=== PATIENT | male | born 1995 | race Caucasian/White ===

== ENCOUNTER 2019-12-21 13:23 | Emergency (ER) | payer BC, SELFPAY ==
--- NOTE | ~2019-12-21 | XR_ITS ---
EXAMINATION: XR chest 2V DATE: 12/21/2019 14:06 INDICATION: Painful respirations. Recent illness with fever. TECHNIQUE: PA and lateral views of the chest were obtained. COMPARISON: None FINDINGS: The lungs are clear with no focal airspace opacities, pulmonary edema, pleural effusion or pneumothor ax. The cardiomediastinal silhouette is normal. Visualized bones and soft tissues are unremarkable. IMPRESSION: 1. Normal chest radiograph. Reviewed, dictated and finalized at location A. IMPRESSION: 1. Normal chest radiograph.
--- NOTE | 2019-12-21 13:30 | ECG_ITS ---
Measurements Intervals [place] Rate: 69 P: 58 MA: 141 QRS: 81 QRSD: 93 T: 22 QT: 383 QTc: 411 Interpretive Statements SINUS RHYTHM NORMAL ECG Electronically Signed On 12-22-2019 10:38:10 CDT by Doc Haro D.O.
[2019-12-21 13:34] VITALS: BP 136/83; PULSE 80; RESP 18; TEMP 36.3; O2SAT 99
[2019-12-21] MEDS: ASPIRIN 81 MG CHEWABLE TABLET 324 MG PO (13:56)
[2019-12-21 14:12] LABS: Basophils Absolute Auto 0.1 K/mm3 (0.0-0.1); Eosinophils Absolute Auto 0.1 K/mm3 (0-0.3); Eosinophils Percent Auto 2.8 % (0-4.4); Hematocrit 40.7 % (42.0-52.0); Hemoglobin 14.3 g/dL (14.0-18.0); Immature Granulocyte Absolute 0.01 K/mm3 (0.00-0.031); Immature Granulocyte Percent A 0.2 % (0-0.5); Lymphocytes Absolute Auto 2.21 K/mm3 (0.9-3.2); Lymphocytes Percent Auto 44.3 % (18.3-44.2); Mean Corpuscular HGB Conc 35.1 g/dl (32-36); Mean Corpuscular Hemoglobin 29.9 pg (26-34); Mean Platelet Volume 10.3 fl (7.4-10.4); Monocytes Absolute Auto 0.5 K/mm3 (0.1-0.6); Monocytes Percent Auto 9.2 % (2.6-8.5); Neutrophils Absolute Auto 2.1 K/mm3 (1.3-6.7); Neutrophils Percent Auto 42.5 % (45.5-73.1); Platelet Count Result 155 k/mm3 (150-375); Red Blood Count 4.79 M/mm3 (4.6-6.20); Red Cell Distribution Width 11.9 % (11.5-14.5)
[2019-12-21 14:24] LABS: Prothrombin Time 12.4 Seconds (11.1-14.7)
[2019-12-21 14:25] LABS: Anion Gap 8 mmol/L (8-16); Blood Urea Nitrogen 18 mg/dL (9-20); Calcium 9.1 mg/dL (8.4-10.2); Carbon Dioxide 27 mmol/L (22-30); Chloride 104 mmol/L (98-107); Estimated CRCL calculation 93 ml/min; Estimated Glomerular Filt Rate > 60; Glucose 102 mg/dL (75-110); Partial Thromboplastin Time 27.4 SECONDS (22.3-36.8); Potassium 3.9 mmol/L (3.4-5.0); Sodium 139 mmol/L (137-145)
[2019-12-21 14:27] LABS: D Dimer 0.53 ug/mL (<0.48)
[2019-12-21 14:35] LABS: Troponin I 0.012 ng/mL (0.000-0.034)
[2019-12-21 15:48] VITALS: BP 121/76; PULSE 73; RESP 14; O2SAT 100
--- NOTE | 2019-12-21 16:08 | ED.CHESTPAIN ---
HPI - Chest Pain General Chief Complaint: Chest Pain Stated Complaint: chest pain Time Seen by Provider: 12/21/19 13:33 Source: patient Mode of arrival: ambulatory Limitations: no limitations History of Present Illness HPI narrative: 24-year-old with no major medical problems here with complaints of upper abdominal and chest pain for last few days. Patient states that every time he takes a deep breath gets some sharp pain in the mid chest area. She denies any shortness of breath. Occasional cough. He also mentions that he had to cope with screen done few days ago and had an negative result. No history of fever or chills. complaint: chest pain Onset (ago): week(s) (1) Timing of current episode: constant Pain radiation: none Severity: moderate Quality: aching Relieving factors: nothing Risk Factors Coronary artery disease risk factors: none Related Data Home Medications Medication Instructions Recorded Confirmed albuterol sulfate 2 puff INHALATION QID PRN 12/21/19 Allergies Allergy/AdvReac Type Severity Reaction Status Date / Time No Known Allergies Allergy Verified 12/21/19 13:32 Review of Systems Review of Systems: All systems reviewed & are unremarkable except as noted in HPI and below Constitutional: Constitutional: Reports no additional constitutional complaints Eyes: Eyes: Reports no additional eye complaints Cardiovascular: Cardiovascular: Reports no additional cardiovascular complaints Respiratory: Respiratory: Reports no additional respiratory complaints Gastrointestinal: Gastrointestinal: Reports no additional gastrointestinal complaints PMFSH Past Medical History Medical History Asthma Social History Social History Smoking status: Never smoker Gender identity (if verbalized by the patient): Male Exam Narrative: Exam Narrative: GENERAL: Well-appearing, well-nourished, and in no acute distress. HEAD: Normocephalic, atraumatic. EYES: PERRLA and EOMI. ENT: Nares clear, no rhinorrhea or epistaxis. Mucous membranes moist. NECK: Supple. CHEST: Clear to auscultation. No respiratory distress. HEART: Regular rate and rhythm. No murmur heard. Normal peripheral pulses. ABDOMEN: Soft, nontender, nondistended, normal active bowel sounds. EXTREMITIES: Normal range of motion. No edema. SKIN: Warm, dry, no rash. NEURO: No focal deficits. Alert and oriented x3. PSYCH: Normal mood and affect. Course Vital Signs Vital signs: Vital Signs Temperature 36.3 C L 12/21/19 13:34 Pulse Rate 80 12/21/19 13:34 Respiratory Rate 18 12/21/19 13:34 Blood Pressure 136/83 12/21/19 13:34 Pulse Oximetry 99 12/21/19 13:34 Temperature 36.3 C L 12/21/19 13:34 Pulse Rate 73 12/21/19 15:48 Respiratory Rate 14 12/21/19 15:48 Blood Pressure 121/76 12/21/19 15:48 Pulse Oximetry 100 12/21/19 15:48 MDM - Chest Pain MDM Narrative Medical decision making narrative: With a history of upper respiratory symptoms and cough and chest pain will do cardiac work-up. There is CBC and chemistry chest x-ray all were normal limits I did inform him about his lab work.. Advised him to take Aleve as needed. Lab Data Result diagrams: 12/21/19 13:35 12/21/19 13:35 Labs: Lab Results 12/21/19 12/21/19 12/21/19 Range/Units 13:35 13:35 13:35 WBC 5.0 (4.5-10.0) K/mm3 RBC 4.79 (4.6-6.20) M/mm3 Hgb 14.3 (14.0-18.0) g/dL Hct 40.7 L (42.0-52.0) % MCV 85.0 (80-100) fl MCH 29.9 (26-34) pg MCHC 35.1 (32-36) g/dl RDW 11.9 (11.5-14.5) % Plt Count 155 (150-375) k/mm3 MPV 10.3 (7.4-10.4) fl Immature Gran % (Auto) 0.2 (0-0.5) % Neut % (Auto) 42.5 L (45.5-73.1) % Lymph % (Auto) 44.3 H (18.3-44.2) % Dodge % (Auto) 9.2 H (2.6-8.5) % Eos % (Auto) 2.8 (0-4.4) % Baso % (Auto) 1.0 (0.2-1.2)
[2019-12-21 17:09] VITALS: BP 121/76; PULSE 76; RESP 20; O2SAT 99
== END 2019-12-21 17:09 | disposition home or self-care (01) ==
PROVIDERS: Emergency Provider Family Medicine
DX: R07.89 Other chest pain (principal); J45.909 Unspecified asthma, uncomplicated
CPT/HCPCS: 36415; 71046; 80048; 84484; 85025; 85380; 85610; 85730; 93005; 99284; A9270

== ENCOUNTER 2020-03-16 10:12 | Emergency (ER) | payer BC, SELFPAY ==
[2020-03-16 10:20] VITALS: BP 150/90; PULSE 83; RESP 18; TEMP 36.5; O2SAT 99
--- NOTE | 2020-03-16 12:11 | ED.WOUNDLAC ---
HPI - Wound/Laceration General Chief Complaint: Wound/Laceration Stated Complaint: lip lac Time Seen by Provider: 03/16/20 10:29 Source: patient Mode of arrival: ambulatory Limitations: no limitations History of Present Illness HPI narrative: Patient presents with chief complaint of laceration to the right lower lip that he should stay after accidentally hitting himself while pulling back a shovel. Patient states that he has mild bleeding to the lip. Patient denies additional falls or injuries. Patient reports some bruising to his upper gum area. He states that he is up-to-date on his tetanus. Related Data Home Medications Medication Instructions Recorded Confirmed albuterol sulfate 2 puff INHALATION QID PRN 12/21/19 Allergies Allergy/AdvReac Type Severity Reaction Status Date / Time No Known Allergies Allergy Verified 03/16/20 10:24 Review of Systems Review of Systems: Narrative: CONSTITUTIONAL: Denies fever, chills, or sweats. EYES: Denies visual changes, redness, or discharge. ENT: Denies rhinorrhea, congestion, sore throat, or otalgia. CARDIOVASCULAR: Denies chest pain, palpitations, or edema. RESPIRATORY: Denies cough or dyspnea. GASTROINTESTINAL: Denies abdominal pain, nausea, vomiting, or diarrhea. GENITOURINARY: Denies dysuria or hematuria. SKIN: Reports lip laceration denies rash or itching. MUSCULOSKELETAL: Denies back pain, joint pain, or myalgia. NEUROLOGIC: Denies headache, numbness, dizziness, or weakness. PSYCHIATRIC: Denies anxiety or depression. PMFSH Past Medical History Medical History (Updated 03/16/20 @ 12:18 by Danny Leavitt PA-C) Asthma Social History Social History Smoking status: Never smoker Gender identity (if verbalized by the patient): Male Exam Narrative: Exam Narrative: GENERAL: Well-appearing, well-nourished, and in no acute distress. HEAD: Normocephalic, atraumatic. See skin. EYES: PERRLA and EOMI. NECK: Supple. No adenopathy or masses. CHEST: Clear to auscultation. No respiratory distress. No wheezes rales or rhonchi HEART: Regular rate and rhythm. No murmur heard. Normal peripheral pulses. EXTREMITIES: Normal range of motion. No edema. SKIN: Approximately 1.5 cm vertical laceration warm to the right aspect of the lower lip. Abrasion to the internal aspect of the right lower lip. Ecchymosis to the right upper gums. dry, no rash. NEURO: No focal deficits. Alert and oriented x3. PSYCH: Normal mood and affect. Course Vital Signs Vital signs: Vital Signs Temperature 97.7 F 03/16/20 10:20 Pulse Rate 83 03/16/20 10:20 Respiratory Rate 18 03/16/20 10:20 Blood Pressure 150/90 H 03/16/20 10:20 Pulse Oximetry 99 03/16/20 10:20 Temperature 97.7 F 03/16/20 10:20 Pulse Rate 84 03/16/20 12:32 Respiratory Rate 15 03/16/20 12:32 Blood Pressure 123/80 03/16/20 12:32 Pulse Oximetry 97 03/16/20 12:32 Procedures Laceration Laceration 1: Site: lip Side (If applicable): right Size (cm): 1.5 Description: linear Depth: simple, single layer Local Anesthetic: lidocaine 1% Amount of anesthesia used (mL): 0.25 Pre-repair: irrigated extensively ====== Skin Level ====== Skin layer closed with: vicryl Size (cm): 5-0 Number of sutures: 3 ====== Subcutaneous Layer ====== ====== Muscle Layer ====== ====== Tendon Layer ====== Dressing: Wound came together well. Wound care instructions discussed with patient. MDM - Wound/Laceration MDM Narrative Medical decision making narrative: Discussed with patient the importance of keeping wounds clean and following up with his primary care if he has any signs of infection. Patient states he is sure he is up-to-date on his tetanus and does not require one emergency department today. Patient has been informed that his sutures will disintegrate over
[2020-03-16 12:17] VITALS: BP 143/80; PULSE 87; RESP 15; O2SAT 100
[2020-03-16 12:32] VITALS: BP 123/80; PULSE 84; RESP 15; O2SAT 97
== END 2020-03-16 12:34 | disposition home or self-care (01) ==
PROVIDERS: Emergency Provider Family Medicine
DX: S01.511A Laceration without foreign body of lip, initial encounter (principal); J45.909 Unspecified asthma, uncomplicated; W27.1XXA Contact with garden tool, initial encounter
CPT/HCPCS: 12011; 99282

== ENCOUNTER 2022-05-01 15:48 | Emergency (ER) | payer OTHER, SELFPAY ==
[2022-05-01 16:02] VITALS: BP 136/77; PULSE 81; RESP 16; TEMP 36.9; O2SAT 99
--- NOTE | 2022-05-01 16:32 | ED.URI ---
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 He reports that he has children at home this tested positive for RSV and strep. MD elicited complaint: sore throat and nasal congestion Related Data Allergies Allergy/AdvReac Type Severity Reaction Status Date / Time No Known Allergies Allergy Verified 05/01/22 16:03 Review of Systems Review of Systems: Pertinent positives per HPI. Patient denies any fever, chills, rash, headache, visual changes, dizziness, shortness of breath, chest pain, palpitations, nausea, vomiting, diarrhea, constipation, abdominal pain, or any urinary issues. PMFSH Past Medical History Medical History Asthma Social History Social History Smoking status: Never smoker Gender identity (if verbalized by the patient): Male Comments At the time of my signature, I reviewed and agree with the nursing past medical, surgical, social, and family history. There is no relevant family history pertinent to the patient complaint. Exam Narrative: General: Well-developed, well nourished, in no apparent distress Head: Normocephalic, atraumatic Eyes: Pupils equally round and reactive to light bilaterally, EOM intact, sclera and conjunctive clear, no discharge, lids normal Ears: TMs intact and clear, ear canals clear, no drainage, grossly hearing normal. Nose: Nares patent, clear nasal discharge, no inflammation, no sinus tenderness. Mouth: Oral pharynx without lesions or masses, good dentition, MMM. oropharynx red Neck: Supple, trachea midline, enlargement of anterior cervical nodes, no thyroid masses or goiter palpable. Cardio: Regular rate and rhythm, s1 and s2 normal, no murmur appreciated. Resp: Clear to auscultation bilaterally, no rhonchi, rales, wheezing or rubs Course Course Emergency Course: Portions of this record may have been created with voice recognition software. Level of Care: Express Care Visit Vital Signs Vital signs: Vital Signs Temperature 36.9 C 05/01/22 16:02 Pulse Rate 81 05/01/22 16:02 Respiratory Rate 16 05/01/22 16:02 Blood Pressure 136/77 05/01/22 16:02 Pulse Oximetry 99 05/01/22 16:02 Oxygen Delivery Room Air 05/01/22 16:02 Temperature 36.9 C 05/01/22 16:02 Pulse Rate 81 05/01/22 16:02 Respiratory Rate 16 05/01/22 16:02 Blood Pressure 136/77 05/01/22 16:02 Pulse Oximetry 99 05/01/22 16:02 Oxygen Delivery Room Air 05/01/22 16:02 Vital signs reviewed MDM - URI/Sore Throat MDM Narrative Medical decision making narrative: At the time of visit patient is resting comfortably on exam table. Strep screen was positive in the clinic today. COVID a and influenza testing were negative. Will send in prescription for amoxicillin supportive measures were discussed with the patient he voiced understanding of discharge instructions. Differential Diagnosis Differential diagnosis: Likely upper respiratory infection, otitis media, sinusitis, viral infection, bronchitis, influenza, pharyngitis and other ( COVID) Lab Data Labs: Influenza A Screen Negative Reference Range: Negative Influenza B Screen Negative Reference Range: Negative Strep Screen Positive Group A Strep *(Reference Range: Negative)* Discharge Plan Discharge Clinical Impression: Strep pharyngitis, Acute upper respi
== END 2022-05-01 16:40 | disposition home or self-care (01) ==
PROVIDERS: Emergency Provider Nurse Practitioner Family
DX: J02.0 Streptococcal pharyngitis (principal); Z20.822 Contact with and (suspected) exposure to COVID-19; J45.909 Unspecified asthma, uncomplicated
CPT/HCPCS: 87426; 87804; 87880; 99213; C9803; G0463

== ENCOUNTER 2023-04-20 16:14 | Emergency (ER) | payer OTHER, SELFPAY ==
--- NOTE | ~2023-04-20 | XR_ITS ---
EXAMINATION: XR knee LT min 4V DATE: 04/20/2023 18:30 INDICATION: Left knee pain TECHNIQUE: Anteroposterior, 2 oblique and crosstable lateral views of the left knee were obtained COMPARISON: None. FINDINGS: Alignment is normal. No fracture. No joint effusion/layering lipohemarthrosis. Sclerotic bone island at the lateral femoral condyle. Soft tissues are unremarkable. IMPRESSION: 1. Negative left knee radiographs. Reviewed, dictated and finalized at location A. VITIES MANAGER
[2023-04-20 16:39] VITALS: BP 139/80; PULSE 83; RESP 18; TEMP 36.9; O2SAT 100
--- NOTE | 2023-04-20 18:11 | ED.LOWEXIN ---
HPI - Extremity Injury (Lower) General Chief Complaint: Extremity Injury, Lower Stated Complaint: KNEE PAIN Time Seen by Provider: 04/20/23 18:11 History of Present Illness HPI Narrative: Patient is a 28-year-old male with no past medical history here today with left knee pain. Patient notes that he has had intermittent knee pain in this same knee for the last year to year and a half. He states he usually feels like a pulling sensation of the string and then resolves after rest, ice, elevation for couple of days. He states that earlier today he was stepping out of a door and twisted his knee and felt this pulling sensation. The pain was so severe that it made him fall to the floor. He denies any other injuries. He states that he has had some difficulty bearing weight on this knee since that time. No prior orthopedic injuries in the past. He denies fever or chills. No numbness or tingling in the leg. Related Data Allergies Allergy/AdvReac Type Severity Reaction Status Date / Time No Known Allergies Allergy Verified 04/20/23 18:11 Review of Systems Review of Systems: All systems reviewed & are unremarkable except as noted in HPI and below PMFSH Past Medical History Medical History (Updated 04/20/23 @ 19:10 by Sona Diego MD) Asthma Social History Social History Smoking status: Never smoker Gender identity (if verbalized by the patient): Male Exam Narrative: GENERAL: Well-appearing, well-nourished, and in no acute distress. HEAD: Normocephalic, atraumatic. EYES: PERRLA and EOMI. ENT: Nares clear. Mucous membranes moist. NECK: Supple. CHEST: Clear to auscultation. No respiratory distress. HEART: Regular rate and rhythm. Normal peripheral pulses. ABDOMEN: Soft, nontender, nondistended. EXTREMITIES: Decreased ROM to the left knee due to pain, no obvious joint effusion, tenderness to the medial aspect of the left knee. Normal PMS distal to the injury. SKIN: Warm, dry, no rash. NEURO: No focal deficits. Alert and oriented x3. PSYCH: Normal mood and affect. Course Course Emergency Course: Chart review performed. Patient here with knee pain. Triage vitals normal. Patient seen and evaluated. No fracture on xray. Discussed results of xray. Suspect arthritis versus soft tissue injury of knee. Will place in knee immobilizer and provide crutches. Patient is advised rest, ice, elevation, Tylenol and ibuprofen for pain. The results of pertinent diagnostic studies and exam findings were discussed. The patient?s provisional diagnosis and plan of care were discussed with the patient and present family. The patient and/or present family expressed understanding of the diagnosis and plan. The nurse was instructed to provide written instructions and appropriate follow-up information. The patient understands their need and responsibility to obtain additional follow-up as instructed. The risks of medications administered and prescribed were discussed with the patient and family present. Vital Signs Vital signs: Vital Signs Temperature 98.4 F 04/20/23 16:39 Pulse Rate 83 04/20/23 16:39 Respiratory Rate 18 04/20/23 16:39 Blood Pressure 139/80 04/20/23 16:39 Pulse Oximetry 100 04/20/23 16:39 Oxygen Delivery Room Air 04/20/23 16:39 Temperature 98.4 F 04/20/23 16:39 Pulse Rate 83 04/20/23 16:39 Respiratory Rate 18 04/20/23 16:39 Blood Pressure 139/80 04/20/23 16:39 Pulse Oximetry 100 04/20/23 16:39 Oxygen Delivery Room Air 04/20/23 16:39 Discharge Plan Discharge Clinical Impression: Knee sprain Qualifiers: Encounter type: initial encounter Involved ligament of knee: unspecified ligament Laterality: left Qualified Code(s): S83.92XA - Sprain of unspecified site of left knee, initial encounter Patient Disposition: Home, Self-Care Condition: Stable Instructions: Antibiotic Form, Knee Pain (ED) Additional Ins
== END 2023-04-20 20:06 | disposition home or self-care (01) ==
PROVIDERS: Emergency Provider Student in an Organized Health Care Education/Training Program
DX: S83.92XA Sprain of unspecified site of left knee, initial encounter (principal); J45.909 Unspecified asthma, uncomplicated; X58.XXXA Exposure to other specified factors, initial encounter
CPT/HCPCS: 73564; 99283

== ENCOUNTER 2023-06-13 13:15 | Outpatient (RCR) | payer OTHER, SELFPAY ==
--- NOTE | 2023-04-30 15:20 | OPREHPOC ---
Outpatient Therapy Plan of Care This is a Multidisciplinary Plan of Care that may contain components documented by all disciplines (PT, OT, and ST.) PT Problem 1 PT Problem #1 Knowledge Deficit PT Goal 1 Goal 1. Patient will perform independent HEP Target Visit 9 PT Problem 2 PT Problem #2 Impaired Functional ADLs PT Goal 1 Goal 1. Patient able to do normal activities without crutches for at least 2 weeks 2. Patient able to do all work activities without limitation Target Visit 9 PT Problem 3 PT Problem #3 Pain PT Goal 1 Goal 1. Patient able to ambulate in therapy gym with pain no higher than 2/10 Target Visit 9 PT Problem 4 PT Problem #4 Impaired Range of Motion PT Goal 1 Goal 1. Improve left knee extension to 0 to normalize gait patterns 2. Improve left knee flexion to 135 for stairs when on the job Target Visit 9 PT Problem 5 PT Problem #5 Impaired Strength PT Goal 1 Goal 1. Flexion and extension 5/5 MMT on left without pain in order to return to all work activities
--- NOTE | 2023-04-30 15:20 | PTOPEVAL1 ---
Assessment and note entered by Jessica Meyers DPT Evaluation Information Assessment Status Evaluation Subjective Information Pt reports he has been diagnosed with a hamstring strain. Has been on and off for about a year but recently felt a snap after getting out of his work truck and walking across a parking lot, then went to turn and felt a lot of pain which caused him to fall down. Occurred on 04/20/24. 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 Difficulty fully straightening his leg now and is currently using crutches. Pain with walking, not doing his normal cooking or cleaning. Can dress and shower independently with difficulty. Dr. Chen told him to use crutches until seeing PT or probably until the end of this week. Highest pain 10/10 and lowest 2-3/10. Return to MD is not scheduled currently. States no plans for surgery at the moment. No stairs at home but often has them in the houses he goes in to. Patient goal: be able to walk again Reported Pain Level Pain Score 3: Self Report Assessment PT Clinical Summary The patient is presenting to skilled therapy with a diagnosis of L hamstring strain. He presents with significantly decreased knee ROM (+35 to 125 actively) and gait impairments which are contributing to his pain with normal activities including work and current crutch use. He will highly benefit from therapy to address his impairments to wean from crutches, decrease pain, and restore full function. LEFS = 27.5% function. Plan of Care Interventions Electrical Stimulation,Gait Training,Hot Pack/Cold Pack,Manual Therapy,Neuro Re-education,Patient/ Caregiver Education,Therapeutic Activities, Therapeutic Exercise PT Services Indicated Yes Treatment Frequency and 2 times a week for 8 visits Duration These treatments will address the objective and functional deficits as defined above. The patient will be advanced safely and appropriately in order for the patient to progress towards his/her prior level of function. Additional exercises will be introduced and as well as a comprehensive home exercise program upon discharge, if needed, ?to ensure carryover of functional gains achieved in the clinic. This treatment plan has been reviewed and agreement upon by the patient.
--- NOTE | 2023-05-11 11:46 | PCPTNOTE ---
Pt. was not seen for physical therapy treatment this date. Pt. spoke with front end developer designer and reported he had the wrong time down.
--- NOTE | 2023-05-29 13:11 | OPREHPOC ---
Outpatient Therapy Plan of Care This is a Multidisciplinary Plan of Care that may contain components documented by all disciplines (PT, OT, and ST.) PT Problem 1 PT Problem #1 Knowledge Deficit PT Goal 1 Goal 1. Patient will perform independent HEP Target Visit 9 Progress Met PT Problem 2 PT Problem #2 Impaired Functional ADLs PT Goal 1 Goal 1. Patient able to do normal activities without crutches for at least 2 weeks 2. Patient able to do all work activities without limitation Target Visit 17 Progress Partially Met Comment No crutches for 2 weeks, not doing all normal/work activities PT Problem 3 PT Problem #3 Pain PT Goal 1 Goal 1. Patient able to ambulate in therapy gym with pain no higher than 2/10 Target Visit 9 Progress Met PT Problem 4 PT Problem #4 Impaired Range of Motion PT Goal 1 Goal 1. Improve left knee extension to 0 to normalize gait pattern 2. Improve left knee flexion to 135 for stairs when on the job Target Visit 17 Progress Partially Met Comment 1. 2 from 0 2. met PT Problem 5 PT Problem #5 Impaired Strength PT Goal 1 Goal 1. Flexion and extension 5/5 MMT on left without pain in order to return to all work activities Target Visit 17 Progress Partially Met Comment 4/5 knee flexion
--- NOTE | 2023-05-29 13:11 | PTOPPROG ---
Assessment and note entered by Jessica Meyers DPT Evaluation Information Assessment Status Progress Subjective Information Pt reports he is overall feeling a lot better with therapy. Highest pain in last week 7-8/10 and lowest 0/10. Notices that side still feels tight and less flexible. Has not used crutches for 2 weeks. Has started to do more activity at work and home but not back to his typical activity level yet. Returns to MD soon but is unsure of date. Assessment PT Clinical Summary The patient has made excellent progress in therapy . He reports overall decreased pain and no crutch use for 2 weeks. He demonstrates improved knee extension range of motion to 2 degrees from neutral. He continues to display LE weakness and gait/stair impairments and will benefit from further therapy to restore motion, strength, and gait to return to full function. LEFS improved to 51.25% of function. Plan of Care Interventions Electrical Stimulation,Gait Training,Hot Pack/Cold Pack,Manual Therapy,Neuro Re-education,Patient/ Caregiver Education,Therapeutic Activities, Therapeutic Exercise PT Services Indicated Yes Treatment Frequency and 2 times a week for 8 visits Duration These treatments will address the objective and functional deficits as defined above. The patient will be advanced safely and appropriately in order for the patient to progress towards his/her prior level of function. Additional exercises will be introduced and as well as a comprehensive home exercise program upon discharge, if needed, ?to ensure carryover of functional gains achieved in the clinic. This treatment plan has been reviewed and agreement upon by the patient.
--- NOTE | 2023-06-06 13:56 | PCPTNOTE ---
Patient called to cancel appointment 06/06/23 due to a work conflict.
--- NOTE | 2023-06-08 13:27 | PCPTNOTE ---
Pt. was a no show for his PT appointment today. Called pt. and left voicemail re: missed appointment
--- NOTE | 2023-06-15 11:37 | PCPTNOTE ---
Pt cancelled do to work conflict.
--- NOTE | 2023-06-19 12:45 | PCPTNOTE ---
Pt cancelled today due to work.
--- NOTE | 2023-06-22 10:37 | PCPTNOTE ---
Patient cancelled appointment for 06/22/23, states he hurt himself again and MD wants him to hold off on therapy until at least after an MRI next week.
--- NOTE | 2023-07-12 09:48 | PTOPDC ---
Assessment and note entered by Jessica Meyers DPJanell Evaluation Information Assessment Status Discharge - Pt Not Present Subjective Information - Assessment PT Clinical Summary Patient has not returned after appointment for imaging several weeks ago. He will be discharged this date and need a new script to resume therapy as needed. Plan of Care PT Services Indicated No
== END 2023-07-12 10:18 | disposition home or self-care (01) ==
LOC: ANHPT 13:15
PROVIDERS: Visit Provider Orthopaedic Surgery
DX: S76.312D Strain of muscle, fascia and tendon of the posterior muscle group at thigh level, left thigh, subsequent encounter (principal)
CPT/HCPCS: 97014; 97035; 97110; 97116; 97140; 97161; 97530; 99199; G0283

== ENCOUNTER 2025-02-23 02:51 | Emergency (ER) | payer OTHER, SELFPAY ==
--- NOTE | ~2025-02-23 | US_ITS ---
EXAMINATION: US scrotum doppler DATE: 02/23/2025 04:35 INDICATION: Testicular pain TECHNIQUE: Testicular sonogram utilizing grayscale and Doppler COMPARISON: None. FINDINGS: The right testis measures 4.6 x 2.9 x 2.1 cm. The left testis measures 4.5 x 2.8 x 1.9 cm. Symmetric normal grayscale appearance to both testes. There is normal vascular flow to both testes. The right epididymis is normal with normal vascular flow. The left epididymis is normal with normal vascular flow. There is no varicocele or hydrocele. IMPRESSION: 1. Normal scrotal ultrasound. Reviewed, dictated and finalized at location A. VERY CONSULTANT
--- OUTSIDE RECORDS SUMMARY | 2025-02-23 02:53 | XMS_ITS | Clinical Summary ---
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 Gender Identity Not on file Sexual Orientation Not on file Last Filed Vital Signs Vital Sign Reading Time Taken Comments Blood Pressure 108/66 04/05/2021 4:59 PM FBI PROFILER Pulse 77 04/05/2021 4:59 PM FBI PROFILER Temperature 36.8 C (98.2 F) 04/05/2021 4:59 PM FBI PROFILER Respiratory Rate 14 04/05/2021 4:59 PM FBI PROFILER Oxygen Saturation 97% 04/05/2021 4:59 PM FBI PROFILER Inhaled Oxygen Concentration - - Weight - - Height - - Body Mass Index - - Plan of Treatment Not on file Insurance [facility] H[facility]/PPO Address: [facility] [id number] [place] [id number] [facility] [address] [id number] Care Teams Diplomatic Interpreter/Translator Relationship Specialty Start Date End Date No, Physician PCP - General 04/05/21
--- OUTSIDE RECORDS SUMMARY | 2025-02-23 02:53 | XMS_ITS | Clinical Summary ---
Author Organization [facility] Address [address] [place] [address] Care Team Providers Care Spindle Repairer Name Role Phone Chante Lee MD Primary Care Provider + Allergies No known active allergies Medications No known medications Active Problems Problem Noted Date Diagnosed Date Flat foot 05/09/2013 Encounters Date Type Department Care Team Description 12/05/2024 Results Follow-Up [facility] Family Medicine - [place] [address] [address] HEAD WO CON 12/03/2024 9:17 AM CDT - 12/03/2024 11:59 PM CDT Hospital Encounter [facility] [address] [place] [address] Chante Lee MD Discharge Disposition: Home or Self Care (Routine Discharge) 12/03/2024 Travel from Last 3 Months Immunizations Immunization Administration Dates Next Due Dtap 09/02/2002,10/30/1998 Dtap (Generic) 1997,1997,1997 Dtp 1997,1997 Dtp/Hib 1997 Hepatitis A (Generic) 03/06/2003,09/02/2002,05/2000 Hepatitis B (Generic: Adult) 02/26/1998,05/25/18 98,1997 Hepatitis B Pediatric 02/26/1998,1997,10/1996 Hib 06/24/1998,1997 Hib Vaccine, Prp-Omp 06/24/1998,1997,07/27,1997 MMR 09/02/2002,06/24/1998 Menactra 02/03/2015 Opv 10/30/1998,1997,1997 Pneumococcal (Prevnar 7) 10/22/2000 Polio IPV (Ipol) 09/02/2002,10/30/1998 Tdap (Adacel) 10/31/2024 Tdap (Generic) 11/08/2011 Varicella Vaccine 11/26/2008,06/24/1998 Family History Medical History Relation Comments No Known Problems Daughter Hypertension Father No Known Problems Mother Lung Cancer Paternal Grandmother smoker No Known Problems Sister No Known Problems Son Relation Status Comments Daughter Alive Father Alive Mother Alive Paternal Grandmother Sister Alive Son Alive Social History Tobacco Use Types Packs/Day Years Used Date Smoking Tobacco: Never Passive Smoke Exposure: Past Smokeless Tobacco: Former Chew Quit: 2022 Tobacco Cessation:Counseling Given: No Alcohol Use Standard Drinks/Week Comments Yes 0 (1 standard drink = 0.6 oz pur e alcohol) Only on occasion PHQ-2 Answer Date Recorded Patient Health Questionnaire-2 Score 0 10/31/2024 Sex and Gender Information Value Date Recorded Sex Assigned at Not on file Legal Sex Male 6:51 PM CDT Gender Identity Not on file Sexual Orientation Not on file Last Filed Vital Signs Vital Sign Reading Time Taken Comments Blood Pressure 137/83 10/31/2024 11:34 AM CDT Pulse 83 10/31/2024 11:34 AM CDT Temperature 36.6 C (97.8 F) 10/31/2024 11:34 AM CDT Respiratory Rate 20 06/12/2021 8:31 PM PROTECTIVE SIGNAL OPERATOR Oxygen Saturation 98% 10/31/2024 11:34 AM CDT Inhaled Oxygen Concentration - - Weight 80.1 kg (176 lb 9.6 oz) 10/31/2024 11:34 AM CDT Height 185.4 cm (6' 1) 10/31/2024 11:34 AM CDT Body Mass Index 23.3 10/31/2024 11:34 AM CDT Plan of Treatment Upcoming Encounters Date Type Department Care Team (Late st Contact Info) Description 11/05/2025 11:30 AM CDT Office Visit [facility] Family Medicine - [place] [address] [place] [address] Chante Lee MD [address] [place] [address] Health Maintenance Due Date Last Done Comments Hepatitis C 2015 HPV Vaccines (1 - 3-dose SCDM series) 2024 COVID-19 Vaccine ( season) 2024 Influenza Adult (#1) 2025 Annual Physical 10/31/2025 10/31/2024 DTaP, Tdap and Td Vaccines (6 - Td or Tdap) 10/31/2034 10/31/2024, 11/08/2011, 09/02/2002, Additional history exists Hepatitis B Vaccines Completed 02/26/1998, 02/26/1998, 1997, Additional history exists Pneumococcal Vaccine: Pediatrics (0 to 5 Years) and At-Risk Patients (6 to 49 Years) Aged Out 10/22/2000 No longer eligible based on patient's age to complete this topic Hepatitis A Vaccines Completed 03/06/2003, 09/02/2002, 10/22/2000 Meningococcal Vaccine Completed 02/03/2015 PHQ-2 (Physician [place]) Completed 10/31/2024 Meningococcal B Vaccine Aged Out No l onger eligible based on patient's age to complete this topic RSV Immunizations Under 20 Months Aged Out No longer eligible based on patient's age to complete this topic Procedures Procedure Name Priority Date/Time Associated Diagnosis Comments CT HEAD WO CON Routine 12/03/2024 9:34 AM CDT Primary stabbing headache from Last 3 Months Results * CT HEAD WO CON (12/03/2024 9:34 AM CDT) Anatomical Region Laterality Modality Head Computed Tomogra phy 12/03/2024 11:2 7 AM CDT Impressions 12/04/2024 4:33 PM CDT IMPRESSION: No acute intracranial abnormalities. Preliminary: Ramiro Smith MD12/04/2024 2:55 PM The attending radiologist has reviewed the image(s) and agrees with the content of this report. Ordered By: CHANTE LEE Interpreted By: Ramiro Smith MD, 12/03/2024 11:27 AM Narrative 12/04/2024 4:33 [place] [address] EXAMINATION: CT of the head CLINICAL HISTORY: Headache. Multiple previous concussions. COMPARISON: None TECHNIQUE: CT examination of the head without contrast was performed with axial images obtained. A dose lowering technique was used for this procedure, which may include, but is not limited to, dose reduction technique, automated exposure control, the use of iterative reconstruction, and ALARA (As Low As Reasonably Achievable) / Image Gently techniques. FINDINGS: There is no evidence of acute intracranial hemorrhage, abnormal extra-axial collections, intracranial mass effect, or midline shift. The ventricles and extra-axial/subarachnoid spaces are unremarkable. Cavum septum pellucidum, normal variant. The sahh-white matter differentiation is grossly preserved. There is no definite CT evidence to suggest acute territorial infarction. The calvarium is unremarkable. The visualized mastoid air cells, paranasal sinuses, and orbits are grossly unremarkable. Procedure Note Codey Palomo MD - 12/04/[address] [address] EXAMINATION: CT of the head CLINICAL HISTORY: Headache. Multiple previous concussions. COMPARISON: None TECHNIQUE: CT examination of the head without contrast was performed withaxial images obtained. A dose lowering technique was used for this procedure, which may include,but is not limited to, dose reduction technique, automated exposurecontrol, the use of iterative reconstruction, and ALARA (As Low AsReasonably Achievable) / Image Gently techniques. FINDINGS: There is no evidence of acute intracranial hemorrhage, abnormalextra-axial collections, intracranial mass effect, or midline shift. Theventricles and extra-axial/subarachnoid spaces are unremarkable. Cavumseptum pellucidum, normal variant. The shah-white matter differentiationis grossly preserved. There is no definite CT evidence to suggest acuteterritorial infarction. The calvarium is unremarkable. The visualizedmastoid air cells, paranasal sinuses, and orbits are grossly unremarkable. IMPRESSION: No acute intracranial abnormalities. Preliminary: Ramiro Smith MD12/04/2024 2:55 PM The attending radiologist has reviewed the image(s) and agrees with thecontent of this report. Ordered By: CHANTE LEE Interpreted By: Ramiro Smith MD, 12/03/2024 11:27 AM us Chante Lee MD CT Final Re sult from Last 3 Months Insurance [facility] Care Teams Spindle Repairer Relationship Specialty Start Date End Date Chante Lee MD [address] [place] [id number] PCP - General FAMILY PRACTICE 10/31/24
--- NOTE | 2025-02-23 03:32 | ED_ITS ---
HPI - Male Genitourinary General Chief complaint: Urogenital-Male Stated complaint: TESTICULAR PAIN Time Seen by Provider: 02/23/25 03:01 History of Present Illness HPI Narrative: 29-year-old male with no past medical history presenting with left testicular pain since tonight. Had a twinge of testicular pain at 11:00 p.m. and did not think anything of it. Went to bed and then woke up 2 hours later with worsening testicular pain. Denies any urinary complaints. No dysuria, hematuria or hesitancy. No concern for STDs. No pain with ejaculation. Denies any testicular masses or lumps that he has fell recently. No history of abdominal surgeries. History of vasectomy 2 years ago. No direct trauma or injuries. No hernias or masses. No nausea, vomiting. Pain is 0 when he is not moving and increases to 6/10 with motion and palpation. Related Data Allergies Allergy/AdvReac Type Severity Reaction Status Date / Time No Known Allergies Allergy Verified 02/23/25 02:51 Review of Systems 2 Review of Systems: As reviewed above in [facility] Past Medical History Medical History (Updated 02/23/25 @ 05:17 by Agus Mckinley MD) Asthma Social History Social History Smoking status: Never smoker Gender identity (if verbalized by the patient): Male Exam 2 Narrative: GENERAL: [Well-appearing, well-nourished, and in no acute distress.] HEAD: [Normocephalic, atraumatic.] EYES: [PERRLA and EOMI.] ENT: Nares clear, no rhinorrhea or epistaxis. Mucous membranes moist. NECK: Supple. CHEST: [Clear to auscultation. No respiratory distress.] HEART: [Regular rate and rhythm]. No murmur heard. [Normal peripheral pulses.] ABDOMEN: [Soft, nondistended], [nontender], [No rigidity or guarding] : Left testicle is tender to palpation over the epididymis and posterior aspect of the scrotal wall but no overlying skin changes or discoloration or masses. Mild fullness palpated in the spermatic cord near the inguinal canal but no masses or hernias appreciated. Cremasteric reflex is more sluggish than left compared to the right but no enlargement of the testicle noted. EXTREMITIES: Normal range of motion. [No edema.] SKIN: Warm, dry, no rash. NEURO: [No focal deficits]. Alert and oriented [x3.] PSYCH: [Normal mood and affect.] Course Vital Signs Vital signs: Vital Signs Pulse Rate 60 02/23/25 05:34 Respiratory Rate 18 02/23/25 05:34 Blood Pressure 120/68 02/23/25 05:34 Pulse Oximetry 99 02/23/25 05:34 Pulse Rate 60 02/23/25 05:34 Respiratory Rate 18 02/23/25 05:34 Blood Pressure 120/68 02/23/25 05:34 Pulse Oximetry 99 02/23/25 05:34 MDM - Male Genitourinary MDM Narrative Medical decision making narrative: 29-year-old male with no past medical history presenting with left testicular pain since tonight. Had a twinge of testicular pain at 11:00 p.m. and did not think anything of it. Went to bed and then woke up 2 hours later with worsening testicular pain. Denies any urinary complaints. No dysuria, hematuria or hesitancy. No concern for STDs. No pain with ejaculation. Denies any testicular masses or lumps that he has fell recently. No history of abdominal surgeries. History of vasectomy 2 years ago. No direct trauma or injuries. No hernias or masses. No nausea, vomiting. Pain is 0 when he is not moving and increases to 6/10 with motion and palpation. Left testicle is tender to palpation over the epididymis and posterior aspect of the scrotal wall but no overlying skin changes or discoloration or masses. Mild fullness palpated in the spermatic cord near the inguinal canal but no masses or hernias appreciated. Cremasteric reflex is more sluggish than left compared to the right but no enlargement of the testicle noted. Symptoms consistent with possible intermittent testicular torsion, epididymitis, varicocele, hydrocele, urinary tract infection/STD. Labs obtained and ultrasonography called in to rule out testicular torsion. Patient has no pain at this time unless we are palpating removing him. Declines any pain medications so p.r.n. morphine ordered. Laboratory studies obtained in case he needs to go the operating room. No overt convincing evidence of torsion at this time but is on the differential waiting ultrasound at this time. Independently reviewed patient's also nausea P and did not appreciate any abnormalities or torsion. Ultrasound confirmed by Radiology shows no acute findings and an unremarkable study. Lab showed no leukocytosis or anemia. Normal platelet count. Electrolytes are unremarkable. Normal renal function. Normal glucose. Urinalysis has no blood or leukocytes. Negative for gonorrhea, chlamydia, Trichomonas. Patient is hemodynamically stable and unremarkable workup thus far safe for discharge with Urology follow-up as needed. Medical Records Attestation: I reviewed the patient's medical records. Lab Data Attestation: I reviewed the patient's lab results. 02/23/25 03:33 02/23/25 03:33 Labs: Lab Results 02/23/25 02/23/25 Range/Units 03:11 03:33 WBC 8.8 (4.5-10.0) K/mm3 RBC 5.20 (4.6-6.20) M/mm3 Hgb 15.3 (14.0-18.0) g/dL Hct 45.0 (42.0-52.0) % MCV 86.5 (80-100) fl MCH 29.4 (26-34) pg MCHC 34.0 (32-36) g/dl RDW 11.8 (11.5-14.5) % Plt Count 213 (150-375) k/mm3 MPV 9.8 (7.4-10.4) fl Immature Gran % (Auto) 0.3 (0-0.5) % Neut % (Auto) 67.2 (45.5-73.1) % Lymph % (Auto) 23.0 (18.3-44.2) % [place] % (Auto) 7.9 (2.6-8.5) % Eos % (Auto) 1.0 (0-4.4) % Baso % (Auto) 0.6 (0.2-1.2) % Lymph # (Auto) 2.02 (0.9-3.2) K/mm3 [place] # (Auto) 0.7 H (0.1-0.6) K/mm3 Eos # (Auto) 0.1 (0-0.3) K/mm3 Baso # (Auto) 0.1 (0.0-0.1) K/mm3 Abs Immat Gran (auto) 0.03 (0.00-0.031) K/mm3 Absolute Neuts (auto) 5.9 (1.3-6.7) K/mm3 Absolute Nucleated RBC 0.000 (0.0-0.012) K/mm3 Nucleated RBC % 0.0 (0.0-0.2) % PT 13.9 (11.1-14.7) Seconds INR 1.1 APTT 27.0 (22.3-36.8) Seconds Sodium 138 (137-145) mmol/L Potassium 4.2 (3.4-5.0) mmol/L Chloride 101 (98-107) mmol/L Carbon Dioxide 28 (22-30) mmol/L Anion Gap 9 (4-12) mmol/L BUN 19 (9-20) mg/dL Creatinine 1.12 (0.7-1.3) mg/dL Estim Creat Clear Calc 99 ml/min Estimated GFR > 60 (59 - ) Glucose 99 (65-110) mg/dL Calcium 9.0 (8.4-10.2) mg/dL Urine Color Yellow (Yellow) Urine Appearance Clear (Clear) Urine pH 6.0 (5.0-9.0) Ur Specific [place] 1.029 (1.001-1.035) Urine Protein 2+ H (Negative) mg/dL Urine Glucose (UA) Negative (Negative) mg/dL Urine Ketones Trace H (Negative) mg/dL Ur Blood (Man) Negative (Negative) Urine Nitrate Negative (Negative) Urine Bilirubin Negative (Negative) Urine Urobilinogen 1.0 (<2.0) mg/dL Add Ur Microanalysis Reviewed Leukocyte Esterase Rfl Negative (Negative) FIDENCIO/UL Urine RBC 0-2 (0-2) /hpf Urine WBC 0-5 (0-3) /hpf Ur Squamous Epith Cells None seen (Few) /hpf Urine Bacteria None seen /hpf Urine Casts 6-10 C. trachomatis (PCR) Not detected (NOT DETECTE) N. gonorrhoeae (PCR) Not detected (NOT DETECTE) T. vaginalis (PCR) Not detected (NOT DETECTE) Blood Type B Negative Antibody Screen Negative Imaging Data Attestation: I personally reviewed and interpreted this imaging study as follows: My impression: No findings, no abnormalities or torsion. Discharge Plan Discharge Clinical Impression: Left testicular pain Patient Disposition: Home Condition: Stable Instructions: Antibiotic Form, Testicle Pain (ED) Additional Instructions: Ultrasound shows no acute abnormalities or evidence of any testicular torsion. Urinalysis does not show any active infection or blood. STD testing was negative. No urgent or emergent causes found today. If your symptoms persist I would take Tylenol and ibuprofen every 6-8 hours for pain control as well as wearing scrotal supporting underwear for comfort and follow-up with the provided urologist. Return with any worsening emergent concerns or pain Patient Language: [place] Citizen Prescriptions: No Action amoxicillin 500 mg tablet 500 mg PO Q12H 10 Days Qty: 20 0RF Follow-up/Referrals: Pierre,Chante Pinzon MD [Primary Care Provider, Unknown] Alon Rodriguez MD [Physician, Urology] - 2 Days Referral Note: Left testicular pain Time of Disposition: 05:17
[2025-02-23 03:43] LABS: Add Urine Microscopic? YES; Appearance Urine Clear (Clear); Glucose Urine UA Negative (Negative); Leukocyte Esterase Ur Negative LEU/UL (Negative); Need Manual Microscopic Reviewed; Nitrate Urine Negative (Negative); Specific Grav Ur 1.029 (1.001-1.035)
[2025-02-23 03:53] LABS: Anion Gap 9 mmol/L (4-12); Blood Urea Nitrogen 19 mg/dL (9-20); Calcium 9.0 mg/dL (8.4-10.2); Carbon Dioxide 28 mmol/L (22-30); Chloride 101 mmol/L (98-107); Estimated CRCL calculation 99 ml/min; Estimated Glomerular Filt Rate > 60; Glucose 99 mg/dL (65-110); Potassium 4.2 mmol/L (3.4-5.0); Sodium 138 mmol/L (137-145)
[2025-02-23 03:56] LABS: Hematocrit 45.0 % (42.0-52.0); Hemoglobin 15.3 g/dL (14.0-18.0); Immature Granulocyte Percent A 0.3 % (0-0.5); Lymphocytes Absolute Auto 2.02 K/mm3 (0.9-3.2); Mean Corpuscular HGB Conc 34.0 g/dl (32-36); Mean Corpuscular Hemoglobin 29.4 pg (26-34); Mean Corpuscular Volume 86.5 fl (80-100); Nucleated Red Blood Cells Absolute Auto 0.000 K/mm3 (0.0-0.012); Nucleated Red Blood Cells Perc 0.0 % (0.0-0.2); Platelet Count Result 213 k/mm3 (150-375); Red Blood Count 5.20 M/mm3 (4.6-6.20); White Blood Count 8.8 K/mm3 (4.5-10.0)
[2025-02-23 04:11] LABS: INR 1.1; Partial Thromboplastin Time 27.0 Seconds (22.3-36.8); Prothrombin Time 13.9 Seconds (11.1-14.7)
[2025-02-23 04:27] LABS: Trichomonas Vag PCR NOT DETECTED (NOT DETECTE)
[2025-02-23 05:34] VITALS: BP 120/68; PULSE 60; RESP 18; O2SAT 99
== END 2025-02-23 05:34 | disposition home or self-care (01) ==
PROVIDERS: Emergency Provider Student in an Organized Health Care Education/Training Program; PCP Student in an Organized Health Care Education/Training Program
DX: N50.812 Left testicular pain (principal); J45.909 Unspecified asthma, uncomplicated
CPT/HCPCS: 36415; 76870; 80048; 81001; 85025; 85610; 85730; 86850; 86900; 86901; 87491; 87591; 87661; 93976; 99284